=== PATIENT | female | born 1960 | race Caucasian/White ===

== ENCOUNTER 2017-06-18 10:12 | Emergency (ER) | payer OTHER ==
[2017-06-18 10:25] VITALS: TEMP 98.6
--- NOTE | 2017-06-18 10:41 | EDPHY ---
H & P Stated Complaint: mechanical fall onto back, slipping on waterat 0830. diff ambulating. Time Seen by Provider: 06/18/17 10:40 HPI/ROS: CHIEF COMPLAINT: Mechanical fall, low back pain HISTORY OF PRESENT ILLNESS: The patient presents to the ED by paramedics with complaints of low back pain and right pelvic pain following mechanical fall work. She reportedly slipped on wet delicia. She landed on her buttock area. She denies acute numbness or weakness. She denies any prior history of back pain or surgery. The patient denies any head injury, headache, cervical pain, thoracic pain, abdominal pain or difficulty breathing. The patient did receive IV narcotics prior to arrival. The patient reports her pain is a 7/10. REVIEW OF SYSTEMS: A comprehensive 10 point review of systems is otherwise negative aside from elements mentioned in the history of present illness. Source: Patient Exam Limitations: No limitations - Personal History Current Tetanus/Diphtheria Vaccine: Yes Current Tetanus Diphtheria and Acellular Pertussis (TDAP): Yes - Medical/Surgical History Hx Asthma: No Hx Chronic Respiratory Disease: No Hx Diabetes: No Hx Cardiac Disease: Yes Hx Renal Disease: No Hx Cirrhosis: No Hx Alcoholism: No Hx HIV/AIDS: No Hx Splenectomy or Spleen Trauma: No Other PMH: pmh: HTN. PSH: none - Social History Smoking Status: Never smoked - Physical Exam Exam: General Appearance: Alert, no distress Head: Atraumatic Eyes: Pupils equal, round, reactive ENT, Mouth: No hemotympanum, no oral trauma Neck: Nontender, trachea midline Respiratory: No chest wall tender, subcutaneous air, lungs clear bilaterally Cardiovascular: Regular rate and rhythm Abdomen: Abdomen is soft and nontender, pelvis stable Skin: No lacerations, No abrasion Back: Tenderness to palpation lower lumbar spine, tenderness to palpation right sacroiliac joint Extremities: Nontender, full range of motion Neurological: A&Ox3, normal motor function, normal sensory exam Constitutional: Initial Vital Signs Temperature (C) 37 C 06/18/17 10:22 Heart Rate 65 06/18/17 10:22 Respiratory Rate 16 06/18/17 10:22 Blood Pressure 152/90 H 06/18/17 10:22 O2 Sat (%) 98 06/18/17 10:22 O2 Delivery Mode Room Air Allergies/Adverse Reactions: No Known Allergies Allergy (Unverified 06/18/17 14:48) Home Medications: Medication Instructions Recorded oxyCODONE/APAP 5/325 [Percocet 1 - 2 tab PO Q6-8PRN PRN #20 tab 06/18/17 5/325 (RX)] Medical Decision Making ED Course/Re-evaluation: The patient presents to the ED with complaints of back, pelvic and hip pain following a mechanical fall. The patient had a x-ray of the L-spine and pelvis which demonstrated no evidence of an acute fracture. She did have a CT scan of hip which demonstrated no evidence of an obvious occult fracture. The patient was able to ambulate in the emergency department. She is noted to be neurologically intact. She presents to the ED with a lumbar strain, gluteal contusion and hip strain following a mechanical fall. The patient will be instructed to treat her symptoms conservatively with restricted activity, NSAIDs , ice and gradual return to activity. The patient will discharged home with customary aftercare instructions and return precautions. Differential Diagnosis: Differential diagnosis considered includes pelvic fracture, lumbar compression fracture, hip fracture, spinal cord injury, sciatica - Data Points Medications Given: Discontinued Medications Acetaminophen (Tylenol) 650 mg PO EDNOW ONE Stop: 06/18/17 13:25 Last Admin: 06/18/17 13:25 Dose: 650 mg Ibuprofen (Motrin) 600 mg PO EDNOW ONE Stop: 06/18/17 13:23 Last Admin: 06/18/17 13:26 Dose: 600 mg Departure - Departure Disposition: Home, Routine, Self-Care Clinical Impression: Sprain, low back Condition: Good Instructions: Acute Low Back Pain (ED) Additional Instructions: 1. Take Ibuprofen or Motrin 600 mg by mouth three times a day. 2. Percocet as needed for severe pain 3. Return to the ED for markedly worsening pain or other concerns. Referrals: DEE MCDANIELS [Primary Care Provider] - As per Instructions Stand Alone Forms: Work Excuse Prescriptions: oxyCODONE/APAP 5/325 [Percocet 5/325 (RX)] 1 - 2 tab PO Q6-8PRN PRN #20 tab PRN Reason: for pain
[2017-06-18] MEDS ORDERED: IBUPROFEN 600 MG TAB PO ONE ×2 (13:15→13:22)
[2017-06-18] MEDS ORDERED: ACETAMINOPHEN 325 MG TAB ONE (13:15)
[2017-06-18] MEDS ORDERED: ACETAMINOPHEN 325 MG TAB PO ONE (13:24)
[2017-06-18 15:10] VITALS: BP 148/93; PULSE 76; RESP 20; O2SAT 95
== END 2017-06-18 15:10 | disposition home or self-care (01) ==
DX: S33.9XXA Sprain of unspecified parts of lumbar spine and pelvis, initial encounter (principal); I10 Essential (primary) hypertension; W01.0XXA Fall on same level from slipping, tripping and stumbling without subsequent striking against object, initial encounter; Y99.0 Civilian activity done for income or pay